=== PATIENT | female | born 2000 | race Caucasian/White ===

== ENCOUNTER 2019-12-01 14:04 | Emergency (ER) | payer BC, SELFPAY ==
--- NOTE | 2019-12-01 14:44 | HMH.EDUTC ---
[facility] [place] Disposition Clinical Impression: Uvulitis Pharyngitis Qualifiers: Pharyngitis/tonsillitis etiology: unspecified etiology Qualified Code(s): J02.9 - Acute pharyngitis, unspecified Disposition: Home, Self-Care Condition on Discharge: Good Instructions: Sore Throat, DI for Pharyngitis/Tonsillopharyngitis -- Adult Additional Instructions: Drink plenty of fluids. Take tylenol or ibuprofen for pain or fever. Take the medications as directed. Follow up with your regular doctor. GO TO THE ER FOR ANY WORSENING SYMPTOMS Don't start the oral steroids until tomorrow, since you had the shot here today. Prescriptions: methylPREDNISolone [Medrol] 4 mg PO DIRECTED 6 Days #21 tab.ds.pk Transmission Status: Received by [facility] # Azithromycin [Z-Ruddy 250mg Tab*] 250 mg PO UD DOSE PK #6 tab Transmission Status: Received by [facility] # Referrals: Sunil Ramos MD [Primary Care Provider] - Forms: Work/School Release Time of Disposition: 15:13 Medical Decision Making - Medical Records Medical records reviewed: No: I reviewed the patient's medical records. - Judah Inquiry Pt receiving controlled substance: No Vital Signs: 12/01/19 14:54 12/01/19 15:18 Temperature 99.3 F 99.3 F Temperature Source Oral Pulse Rate 93 H Pulse Rate [Right Brachial] 93 H Respiratory Rate 14 14 Blood Pressure 128/76 Blood Pressure [Right Arm] 128/76 Blood Pressure Mean [Right Arm] 93 Blood Pressure Source [Right Arm] Automatic Cuff Blood Pressure Position [Right Arm] Sitting 02 Sat by Pulse Oximetry 99 Oxygen Delivery Method Room Air Orders (Tests/Meds): ED MEDICATIONS Discontinued Medications Generic Name Dose Route Start Last Admin Trade Name Freq PRN Reason Stop Dose Admin Methylprednisolone Sodium Succinate 125 mg 12/01/19 15:01 12/01/19 15:06 Solu-Medrol 125mg/2ml Vial IM 12/01/19 15:02 125 mg ONCE ONE Administration [facility] [place] HPI - General Stated complaint: sore and swollen throat Time Seen by Provider: 12/01/19 14:44 - History of Present Illness Provider Complaint: She c/o sore throat and feeling bad for the past 2 days. She used to get strep throat frequently, but she had her tonsils removed 2 years ago and she has not had it since. But she feels like she does now. - Related Data Previous Rx's Medication Instructions Recorded Naproxen [Naproxen 500mg tab] 500 mg PO BIDP PRN #30 tab 04/21/19 Azithromycin [Z-Ruddy 250mg Tab*] 250 mg PO UD DOSE PK #6 tab 12/01/19 methylPREDNISolone [Medrol] 4 mg PO DIRECTED 6 Days #21 12/01/19 tab.ds.pk Allergies Allergy/AdvReac Type Severity Reaction Status Date / Time clindamycin [CLINDAMYCIN] Allergy Mild NA-NAUSEA/V Verified 01/17/19 09:58 OMITING cefdinir [CEFDINIR] Allergy Unknown ABDOMINAL Verified 01/17/19 09:58 CRAMPING, VOMITING [facility] History - Hepatitis A Screen Attestation statement:: This patient has been screened for Hepatitis A risk factors. I have reviewed the patient's past medical history: Yes Medical History: Denies:: Cancer, Diabetes Mellitus Type 1, Diabetes Mellitus Type 2, Hypertension, MRSA Laterality Cases: Bilateral: Tonsillectomy Amputation: No Fractures: No - Social History Smoking Status: Unknown if ever smoked Alcohol Intake: never Occupational Status: employed ROS Obtained: Yes All systems reviewed & no additional complaints - Constitutional Constitutional: Reports chills, Denies fever(s), Reports poor appetite, Reports malaise - Eyes Eyes: Denies eye discharge - ENT Ears, Nose, Mouth, and Throat: Reports as per HPI - Cardiovascular Cardiovascular: Denies chest pain - Respiratory Respiratory: No chest congestion, Yes cough - Gastrointestinal Gastrointestingal: Denies: abdominal pain, diarrhea, nausea, vomiting Physical Exam - General General appearance: alert, in no apparent distress - Hea
[2019-12-01 14:54] VITALS: BP 128/76; PULSE 93; RESP 14; TEMP 37.4; O2SAT 99; BMI 43.7
[2019-12-01 15:18] VITALS: BP 128/76; PULSE 93; RESP 14; TEMP 37.4; O2SAT 99
== END 2019-12-01 15:19 | disposition home or self-care (01) ==
PROVIDERS: Emergency Provider Nurse Practitioner Family; PCP Family Medicine
DX: K12.2 Cellulitis and abscess of mouth (principal); J02.9 Acute pharyngitis, unspecified; Z88.1 Allergy status to other antibiotic agents
CPT/HCPCS: 96372; 99201

== ENCOUNTER 2020-03-20 12:38 | Emergency (ER) | payer BC, SELFPAY ==
[2020-03-20 12:40] VITALS: BP 126/90; PULSE 76; RESP 20; TEMP 36.9; O2SAT 98; BMI 42.3
--- NOTE | 2020-03-20 12:52 | HMH.EDUTC ---
[facility] [place] Disposition Clinical Impression: Breast pain in female Disposition: Home, Self-Care Condition on Discharge: Good Instructions: Mastalgia: Benign Breast Pain Additional Instructions: Follow up with Dr Degroot for further treatment and evaluation Return if needed Over the counter pain medication may help with pain and discomfort Straight to ER if any life threatening symptoms Referrals: Sunil Ramos MD [Primary Care Provider] - As needed Gray Degroot MD [Staff Physician] - (Call office for appointment) Time of Disposition: 14:14 Medical Decision Making - Judah Inquiry Pt receiving controlled substance: No Judah was queried for this patient: No Vital Signs: 03/20/20 12:40 03/20/20 14:18 Temperature 98.4 F 98.4 F Temperature Source Oral Pulse Rate 76 Pulse Rate [Left Brachial] 76 Respiratory Rate 20 20 Blood Pressure 126/90 Blood Pressure [Left Arm] 126/90 Blood Pressure Mean [Left Arm] 102 Blood Pressure Source [Left Arm] Automatic Cuff Blood Pressure Position [Left Arm] Sitting 02 Sat by Pulse Oximetry 98 Oxygen Delivery Method Room Air - Lab Data Lab Results 03/20/20 12:56: [facility] Clinic Negative 03/20/20 13:20: Serum HCG, Qual Negative - Physician Consults Physician Consulted: Zane Time: 13:10 Reason -: Gynocological Eval/Care Comment/Response: Spoke with staff in Dr Adams office Recommended beta HCG and if negative have her call office for appointment [facility] [place] HPI - General Stated complaint: breast pain Time Seen by Provider: 03/20/20 12:52 Mode of Arrival: Ambulatory Source of Information: Patient Limitations: No Limitations Description of Symptoms (Recalled from Triage Doc. by RN): PATIENT C/O BILATERAL BREAST TENDERNESS X 1 WEEK, STATES IT WAS WORSE THIS MORNING HEENT Symptoms (Recalled from RN notes): No Resp Symptoms (Recalled from RN notes): No Skin Symptoms (Recalled from RN notes): No MS Symptoms (Recalled from RN notes): No Functional Status (Recalled from RN notes): WNL - History of Present Illness Provider Complaint: Patient reports that she has been having bilateral breast tenderness and pain on and off for about a week State that this morning it was worse so she come in to get checked States that breast feel tender to the touch, no redness no swelling no streaking Reports that there is a chance that she is and wants to get checked and tested - Related Data Home Medications Medication Instructions Recorded Confirmed No Known Home Medications 03/20/20 03/20/20 Allergies Allergy/AdvReac Type Severity Reaction Status Date / Time clindamycin [CLINDAMYCIN] Allergy Mild NA-NAUSEA/V Verified 01/17/19 09:58 OMITING cefdinir [CEFDINIR] Allergy Unknown ABDOMINAL Verified 01/17/19 09:58 CRAMPING, VOMITING - Worker's Comp Is this a Worker's Comp case?: No [facility] History - Hepatitis A Screen Drug use history?: No High risk sexual behaviors?: No History of sexually transmitted infection?: No Currently employed?: No Childcare worker?: No Do you have indoor plumbing?: Yes Do you have electricity?: Yes Attestation statement:: This patient has been screened for Hepatitis A risk factors. I have reviewed the patient's past medical history: Yes Medical History: Denies:: Cancer, Diabetes Mellitus Type 1, Diabetes Mellitus Type 2, Hypertension, MRSA Laterality Cases: Bilateral: Tonsillectomy Amputation: No Fractures: No - Social History Smoking Status: Unknown if ever smoked Alcohol Intake: never Occupational Status: other ROS Obtained: Yes All systems reviewed & no additional complaints, Yes Systems reviewed as appropriate & no additional complaints - Constitutional Constitutional: Reports system reviewed and no additional complaints, except as docu, Denies body ache, Denies chills, Denies fever(s), Denies headache(s) - Cardiovascular Cardiovascular: Reports system reviewed and no additional complaints,
[2020-03-20 12:57] LABS: UTC Pregnancy Test, Urine Negative (Negative)
[2020-03-20 14:12] LABS: HCG Qualitative, Serum Negative (Negative)
[2020-03-20 14:18] VITALS: BP 126/90; PULSE 76; RESP 20; TEMP 36.9; O2SAT 98
== END 2020-03-20 14:20 | disposition home or self-care (01) ==
PROVIDERS: Emergency Provider Nurse Practitioner; PCP Family Medicine
DX: N64.4 Mastodynia (principal); Z32.02 Encounter for pregnancy test, result negative; Z88.1 Allergy status to other antibiotic agents
CPT/HCPCS: 81025; 84703; 99202

== ENCOUNTER 2020-07-21 01:16 | Emergency (ER) | payer BC, SELFPAY ==
[2020-07-21 01:30] VITALS: BP 140/74; PULSE 88; RESP 16; TEMP 36.6; O2SAT 100; BMI 47.0
[2020-07-21 01:41] LABS: Microscopic, Urine URINE MICROSCOPIC (MICROSCOPIC)
[2020-07-21 01:44] LABS: Appearance,Urine CLEAR (Clear); Bilirubin,Urine Negative (Negative); Blood, Urine Negative (Negative); Color,Urine YELLOW (Yellow); Glucose,Urine (UA) Negative (Negative); Ketones,Urine Negative (Negative); Leukocyte Esterase,Urine Negative (Negative); Nitrate,Urine Negative (Negative); PH,Urine 6.5 (5.0-8.5); Protein,Urine Negative (Negative); Specific Gravity, Urine 1.025 (1.005-1.030); Urobilinogen,Urine 0.2 EU/dl (0.2)
[2020-07-21 01:45] LABS: Urine Pregnancy, HCG Qual. Negative (Negative)
[2020-07-21 01:54] LABS: WBC,Urine Occasional #/hpf (0-3)
[2020-07-21 01:55] LABS: Bacteria,Urine 1+ /lpf; Squamous Epithelial Cell,Urine 50-100 #/hpf (0-5)
--- NOTE | 2020-07-21 02:28 | CT_ITS ---
PROCEDURE: CT HEAD/BRAIN WO CON CLINICAL INDICATION: migraine with aura Headache for 4 days COMPARISON: No exams were available for comparison TECHNIQUE: Axial images obtained. All CT scans at the facility use one or more dose reduction, viz: automated exposure control, ma/kV adjustment per patient size (including targeted exams where dose is matched to indication, i.e. head), or iterative reconstruction technique. FINDINGS: No midline shift, mass effect, intracranial hemorrhage, hydrocephalus, or extra-axial fluid collection is evident. The calvarium has an unremarkable appearance. No mastoid effusion. No sinus air-fluid level. IMPRESSION: No acute intracranial finding Dictated by: Moisés Cruz MD 07/21/2020 06:01 Moisés Cruz MD in [place] 07/21/2020 06:01
[2020-07-21 02:49] LABS: Basophils % 0.4 % (0.1-2.0); Eosinophils # 0.1 K/mm3 (0.0-0.4); Hematocrit 40.9 % (37.0-47.0); Hemoglobin 13.4 g/dL (12.2-16.2); Lymphocytes # 2.4 K/mm3 (0.7-4.5); Lymphocytes % 24.1 % (10-50); Mean Corpuscular HGB Conc 32.8 g/dL (31.8-35.4); Mean Corpuscular Hemoglobin 28.2 pg (27.0-31.2); Mean Corpuscular Volume 85.7 fl (81-99); Mean Platelet Volume 8.2 fl (7.4-10.4); Monocytes # 0.6 K/mm3 (0.1-1.0); Monocytes % 6.1 % (1.7-9.3); Neutrophils # 6.8 K/mm3 (1.8-7.8); Neutrophils % 68.4 % (37.0-80.0); Platelet Count 278 K/mm3 (142-424); Red Blood Count 4.77 M/mm3 (4.20-5.40)
[2020-07-21 02:51] LABS: Alanine Aminotransferase 20 U/L (12-78); Albumin Level 4.4 g/dl (3.5-5.0); Alkaline Phosphatase 68 U/L (38-126); Anion Gap 11.1 mEq/L (5-15); Aspartate Amino Transferase 23 U/L (14-36); Bilirubin,Indirect 0.4 mg/dL (0.0-0.9); Bilirubin,Total 0.4 mg/dl (0.2-1.3); Bilirubin,Unconjugated 0.4 mg/dL (0.0-1.1); Blood Urea Nitrogen 11 mg/dl (7-17); Calcium 9.5 mg/dl (8.4-10.2); Carbon Dioxide 27 mmol/L (22.0-30.0); Chloride 105 mmol/L (98-107); Creatinine Clearance Estimated 144 mL/min (50-200); Estimated Glomerular Filt Rate 126 ml/min (>60); GFR (African American) 153 ML/MIN (>60); Glucose 116 mg/dl (74-100); Potassium 4.1 mmoL/L (3.5-5.1); Sodium 139 mmol/L (136-145); Total Protein,Serum 7.6 g/dl (6.3-8.2)
--- NOTE | 2020-07-21 04:01 | HMH.EDHA ---
ED Disposition Clinical Impression: Headache Qualifiers: Headache type: unspecified Headache chronicity pattern: acute headache Intractability: not intractable Qualified Code(s): R51.9 - Headache, unspecified Disposition: Home, Self-Care Condition on Discharge: Good Instructions: DI for Headache Additional Instructions: see pcp for follow up Referrals: Sunil Ramos MD [Primary Care Provider] - - Critical Care Critical Care Time: No Attestation: On 07/21/20, the high probability of a clinically significant, sudden or life threatening deterioration of the following system(s) required my full and direct attention, intervention and personal management. The time I documented below is in addition to time spent performing reported procedures but includes the following listed in this critical care notation. Medical Decision Making - Medical Records Medical records reviewed: Yes: I reviewed the patient's medical records. - Judah Inquiry Pt receiving controlled substance: No Vital Signs: 07/21/20 01:30 Temperature 97.8 F Temperature Source Oral Pulse Rate [Right Brachial] 88 Respiratory Rate 16 Blood Pressure [Right Arm] 140/74 Blood Pressure Mean [Right Arm] 96 Blood Pressure Source [Right Arm] Automatic Cuff Blood Pressure Position [Right Arm] Sitting 02 Sat by Pulse Oximetry 100 Oxygen Delivery Method Room Air - Lab Data Lab results reviewed: Yes: I reviewed the patient's lab results. Lab Results 07/21/20 01:25: Urine Color Yellow, Urine Appearance Clear, Urine pH 6.5, Ur Specific [place] 1.025, Urine Protein Negative, Urine Glucose (UA) Negative, Urine Ketones Negative, Urine Blood Negative, Urine Nitrate Negative, Urine Bilirubin Negative, Urine Urobilinogen 0.2, Ur Leukocyte Esterase Negative, Urine RBC None, Urine WBC Occasional, Ur Squamous Epith Cells 50-100, Urine Bacteria 1+ 07/21/20 01:25: Urine HCG, Qual Negative 07/21/20 01:35: WBC 10.0, RBC 4.77, Hgb 13.4, Hct 40.9, MCV 85.7, MCH 28.2, MCHC 32.8, RDW 14.0, Plt Count 278, MPV 8.2, Neut % (Auto) 68.4, Lymph % (Auto) 24.1, [place] % (Auto) 6.1, Eos % (Auto) 1.0, Baso % (Auto) 0.4, Neut # (Auto) 6.8, Lymph # (Auto) 2.4, [place] # (Auto) 0.6, Eos # (Auto) 0.1, Baso # (Auto) 0.0 07/21/20 01:35: Sodium 139, Potassium 4.1, Chloride 105, Carbon Dioxide 27, Anion Gap 11.1, BUN 11, Creatinine 0.60, Estimated Creat Clear 144, Estimated GFR 126, Est GFR ( Amer) 153, Glucose 116 H, Calcium 9.5, Total Bilirubin 0.4, Direct Bilirubin 0.0, Conjugated Bilirubin 0.0, Indirect Bilirubin 0.4, Unconjugated Bilirubin 0.4, AST 23, ALT 20, Alkaline Phosphatase 68, Total Protein 7.6, Albumin 4.4 Result diagrams: 07/21/20 01:35 07/21/20 01:35 Orders (Tests/Meds): ED MEDICATIONS Generic Name Dose Route Start Last Admin Trade Name Freq PRN Reason Stop Dose Admin Sodium Chloride 1,000 mls @ 999 mls/hr 07/21/20 01:45 07/21/20 01:52 Sod Chlor 0.9% 1000ml Bag IV 07/21/20 02:45 999 mls/hr .Q1H1M RALPH Administration Discontinued Medications Generic Name Dose Route Start Last Admin Trade Name Freq PRN Reason Stop Dose Admin Ketorolac Tromethamine 30 mg 07/21/20 01:41 07/21/20 01:52 Ketorolac 30mg/Ml Vial IV 07/21/20 01:42 30 mg ONCE ONE Administration Methylprednisolone Sodium Succinate 125 mg 07/21/20 01:39 07/21/20 01:52 Methylprednisolone Sod Succ 125mg Vial IV 07/21/20 01:40 125 mg ONCE ONE Administration Ondansetron HCl 4 mg 07/21/20 01:41 07/21/20 01:52 Ondansetron 4mg/2ml Vial IV 07/21/20 01:42 4 mg ONCE ONE Administration ORDERS Category Date Time Status CT head/brain wo con Stat Cat Scan 07/21/20 02:28 Taken - CT Data CT Scan: Head Time Received: 04:[address] Reviewed: Yes: I have viewed the radiologist's interpretation Preliminary Findings: Normal/NAD Medical Decision Narrative: neg ct and improved with treatment Headache HPI - General Chief Complaint: Headache Stated Compl
[2020-07-21 04:10] VITALS: BP 117/50; PULSE 73; RESP 16; TEMP 36.4; O2SAT 100
== END 2020-07-21 04:14 | disposition home or self-care (01) ==
PROVIDERS: Emergency Provider Emergency Medicine; PCP Family Medicine
DX: G43.109 Migraine with aura, not intractable, without status migrainosus (principal)
CPT/HCPCS: 70450; 80048; 80076; 81001; 81025; 85025; 96365; 96375; 99283; J2405

== ENCOUNTER → 2020-12-05 15:11 | Outpatient (CLI) | payer BC, SELFPAY ==
--- NOTE | 2020-12-05 15:18 | MR_ITS ---
PROCEDURE: MR HEAD/BRAIN WO/W CON CLINICAL INDICATION: MIGRAINES WITH RT SIDED WEAKNESS COMPARISON: CT CT HEAD/BRAIN WO CON from 07/21/2020 TECHNIQUE: Multiplanar, multisequence MRI brain performed with both pre- and post-contrast imaging. Contrast: FINDINGS: No restricted diffusion is present to suggest an acute infarct.There is no space-occupying or enhancing mass lesion and no abnormal fluid collection.There is no abnormal post-contrast enhancement.There is no evidence of hemorrhage. Ventricles: The Ventricles are within noraml limits for size, configuration, and symmetry. Volume: Brain parenchymal volume is appropriate for age. Osseous: Osseous structures are unremarkable. Sinuses: The paranasal sinuses are clear bilaterally. Mastoids: Mastoid air cells are clear. IMPRESSION: Unremarkable MRI brain without evidence of any acute intracranial process. Dictated by: Moisés Cruz MD 12/06/2020 12:10 Moisés Cruz MD in [place] 12/06/2020 12:10
--- NOTE | 2020-12-05 15:18 | MR_ITS ---
PROCEDURE: MR ANGIO HEAD WO CON CLINICAL INDICATION: MIGRAINES WITH HX OF RT SIDED WEAKNESS COMPARISON: MR MR HEAD/BRAIN WO/W CON from 12/05/2020 TECHNIQUE: MR angiography of the intracranial circulation acquired without contrast, using 3D time of flight imaging with multiplanar 3D reformations. FINDINGS: ANTERIOR CIRCULATION: Carotids: The right ICA has an unremarkable appearance. There is a linear filling defect within the supraclinoid portion of the left ICA versus partial duplication or a vascular variant adjacent to the lateral aspect of the left ICA in the supraclinoid region extending to the ICA bifurcation. Anterior circulation: Both supraclinoid ICAs bifurcate into normal anterior and middle cerebral arteries without any significant stenosis or aneurysm. 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 Anterior additional: POSTERIOR CIRCULATION: Posterior circulation: There is persistent origin of the right posterior cerebral artery as a normal variant. The vertebral, basilar, and posterior cerebral have otherwise unremarkable appearance. Posterior additional: No other significant findings are noted. 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 A dissection of the supraclinoid portion of the left ICA is felt to be less likely but is included in the differential diagnosis. Suggest CT angiogram of the head for further evaluation. No aneurysm Dictated by: Moisés Cruz MD 12/06/2020 12:27 Moisés Cruz MD in [place] 12/06/2020 12:27
== END ==
PROVIDERS: PCP Family Medicine; Visit Provider Family Medicine
DX: G43.409 Hemiplegic migraine, not intractable, without status migrainosus (principal)
CPT/HCPCS: 70544; 70553; A9576

== ENCOUNTER → 2021-01-01 10:47 | Outpatient (CLI) | payer BC, SELFPAY ==
--- NOTE | 2021-01-01 10:47 | CT_ITS ---
PROCEDURE INFORMATION: Exam: CT Angiography Head With Contrast, Arteriography Exam date and time: 01/01/2021 10:47 AM Age: 20 years old Clinical indication: Worsening headaches, numbness, visual changes, TECHNIQUE: Imaging protocol: Computed tomography angiography of the head with contrast. Exam focused on the arteries. 3D rendering (Not supervised by radiologist): MIP and/or 3D reconstructed images were created by the technologist. Radiation optimization: All CT scans at this facility use at least one of these dose optimization techniques: automated exposure control; mA and/or kV adjustment per patient size (includes targeted exams where dose is matched to clinical indication); or iterative reconstruction. Contrast material: ISOVUE 370; Contrast volume: 70 ml; Contrast route: INTRAVENOUS (IV); COMPARISON: MR ANGIO HEAD WO CON 12/05/2020 3:38 PM FINDINGS: ANTERIOR CIRCULATION: Right internal carotid artery: Unremarkable. Intracranial segment is patent with no significant stenosis. No aneurysm. Right middle cerebral artery: Unremarkable. No occlusion or significant stenosis. No aneurysm. Right anterior cerebral artery: Unremarkable. No occlusion or significant stenosis. No aneurysm. Left internal carotid artery: Unremarkable. Intracranial segment is patent with no significant stenosis. No aneurysm. Left middle cerebral artery: Unremarkable. No occlusion or significant stenosis. No aneurysm. Left anterior cerebral artery: Unremarkable. No occlusion or significant stenosis. No aneurysm. POSTERIOR CIRCULATION: Right vertebral artery: Unremarkable. No occlusion or significant stenosis. No aneurysm. Left vertebral artery: Unremarkable. No occlusion or significant stenosis. No aneurysm. Basilar artery: Unremarkable. No occlusion or significant stenosis. No aneurysm. Right posterior cerebral artery: Unremarkable. No occlusion or significant stenosis. No aneurysm. Left posterior cerebral artery: Unremarkable. No occlusion or significant stenosis. No aneurysm. Brain: No definite mass, mass effect, or midline shift. Cerebral ventricles: No ventriculomegaly. Bones/joints: Unremarkable. No acute fracture. Soft tissues: Unremarkable. IMPRESSION: No large vessel stenosis or occlusion.
== END ==
LOC: RAD 10:47
PROVIDERS: PCP Physician Assistant; Visit Provider Physician Assistant
DX: R51.9 Headache, unspecified (principal); R93.0 Abnormal findings on diagnostic imaging of skull and head, not elsewhere classified
CPT/HCPCS: 70496; Q9967

== ENCOUNTER → 2021-01-21 09:13 | Outpatient (CLI) | payer BC, SELFPAY ==
[2021-01-21 09:49] VITALS: BMI 34.7
[2021-01-21 10:04] LABS: Coronavirus 19, PCR Not Detected (NotDetected); Influenza A, PCR Not Detected (NotDetected); Influenza B, PCR Not Detected (NotDetected)
== END ==
PROVIDERS: PCP Physician Assistant; Visit Provider Nurse Practitioner
DX: Z20.822 Contact with and (suspected) exposure to COVID-19 (principal)
CPT/HCPCS: C9803; U0003; U0005

== ENCOUNTER → 2021-04-08 11:01 | Outpatient (CLI) | payer OTHER, SELFPAY ==
[2021-04-08 11:15] LABS: Influenza A, PCR Not Detected (NotDetected); Influenza B, PCR Not Detected (NotDetected)
[2021-04-08 11:56] LABS: Coronavirus 19, PCR Detected (NotDetected)
== END ==
PROVIDERS: PCP Physician Assistant; Visit Provider Nurse Practitioner
DX: U07.1 COVID-19 (principal)
CPT/HCPCS: C9803; U0003; U0005

== ENCOUNTER 2021-08-08 11:38 | Emergency (ER) | payer BC, SELFPAY ==
[2021-08-08 11:55] VITALS: BP 109/76; PULSE 68; RESP 18; TEMP 36.8; O2SAT 99; BMI 44.3
--- NOTE | 2021-08-08 12:00 | HMH.EDUTC ---
[facility] [place], [place] Disposition Clinical Impression: Strep sore throat Disposition: Home, Self-Care Condition on Discharge: Good Instructions: DI for Strep Throat Additional Instructions: Start antibiotics today be sure to take it as ordered with the full length of time although you should start feeling better in 24-48 hours. Change toothbrush and toothpaste 24-48 hours after starting antibiotics Tylenol or Motrin as needed for fever or pain Encourage fluids, water, Gatorade, Powerade, try cold fluids, popsicles, ice cream will make it feel better You are contagious for 24 hours. Avoid kissing anyone, no eating or drinking after anyone. You are contagious. Follow-up the ER for new or worsening symptoms or no noticeable improvement over the next 24-48 hours. Follow-up with PCP this week. Prescriptions: Azithromycin [Zithromax 250mg tab] 250 mg PO DIRECTED #6 tab Transmission Status: Pending to [facility] #[id number] Referrals: Molly Salter PA [Primary Care Provider] - Time of Disposition: 12:15 Medical Decision Making - Judah Inquiry Pt receiving controlled substance: No Vital Signs: 08/08/21 11:55 Temperature 98.3 F Temperature Source Oral Pulse Rate [Radial] 68 Respiratory Rate 18 Blood Pressure [Right Arm] 109/76 L Blood Pressure Mean [Right Arm] 87 02 Sat by Pulse Oximetry 99 - Lab Data Lab Results 08/08/21 11:51: Group A Strep Rapid Negative Orders (Tests/Meds): ORDERS Category Date Time Status Strep Screen Confirmation Stat Micro 08/08/21 11:51 Received [facility] [place], [place] HPI - General Chief complaint: Urgent Treatment Center Stated complaint: cough, sore throat Time Seen by Provider: 08/08/21 12:12 Mode of Arrival: Ambulatory Source of Information: Patient Limitations: No Limitations Description of Symptoms (Recalled from Triage Doc. by RN): pt here with c/o cough, sore throat. pt tested negative for covid this am HEENT Symptoms (Recalled from RN notes): Yes Resp Symptoms (Recalled from RN notes): Yes Skin Symptoms (Recalled from RN notes): No MS Symptoms (Recalled from RN notes): No Functional Status (Recalled from RN notes): wnl - History of Present Illness Provider Complaint: 21 yr old female presnets for c/o cough, sore throat. pt tested negative for covid this am - Related Data Home Medications Medication Instructions Recorded Confirmed rimegepant 75 mg disintegrating mg PO ONCE PRN tab 12/27/20 01/17/21 tablet topiramate 50 mg tablet 50 mg PO BID 12/27/20 01/17/21 Previous Rx's Medication Instructions Recorded butalbital 50 mg-acetaminophen 300 1 cap PO Q4H PRN #30 cap 12/27/20 mg-caffeine 40 mg-codeine 30 mg cap lisdexamfetamine 30 mg capsule 30 mg PO DAILY #30 cap 01/17/21 doxycycline hyclate 100 mg tablet 100 mg PO BID #20 tab 01/21/21 prednisone 20 mg tablet 20 mg PO BID #10 tab 01/21/21 azithromycin 250 mg tablet See Rx Instructions PO .COMPLEX #6 04/11/21 tab [id number]-[id number]-[id number] 5 ml PO Q8H PRN #200 ml 04/11/21 2 mg-30 mg-10 mg/5 mL oral syrup methylprednisolone 4 mg tablets in See Rx Instructions PO PER PKG DIR 04/11/21 a dose pack #21 tab cariprazine 1.5 mg capsule 1.5 mg PO DAILY #30 cap 04/23/21 Azithromycin [Zithromax 250mg 250 mg PO DIRECTED #6 tab 08/08/21 tab] Allergies Allergy/AdvReac Type Severity Reaction Status Date / Time clindamycin [CLINDAMYCIN] Allergy Mild NA-NAUSEA/V Verified 08/08/21 12:03 OMITING cefdinir [CEFDINIR] Allergy Unknown ABDOMINAL Verified 08/08/21 12:03 CRAMPING, VOMITING - Worker's Comp Is this a Worker's Comp case?: No [facility] History - Hepatitis A Screen Attestation statement:: This patient has been screened for Hepatitis A risk factors. I have reviewed the patient's past medical history: Yes Medical History: Reports:: Migraine Denies:: Cancer, Diabetes Mellitus Type 1, Diabetes Mellitus Type 2, Hypertension, MRSA Laterality Cases: Bilateral:
[2021-08-08 12:06] LABS: Strep Scrn Group A (Rapid) Negative (Negative)
[2021-08-08 12:07] LABS: UTC Influenza A Antigen Negative (Negative); UTC Influenza B Antigen Negative (Negative)
[2021-08-08 12:20] VITALS: BP 109/76; PULSE 68; RESP 18; TEMP 36.8
== END 2021-08-08 12:22 | disposition home or self-care (01) ==
PROVIDERS: Emergency Provider Nurse Practitioner Family; PCP Physician Assistant
DX: J02.0 Streptococcal pharyngitis (principal); Z88.1 Allergy status to other antibiotic agents
CPT/HCPCS: 87430; 87804; 99212; G0463

== ENCOUNTER 2022-02-12 09:35 | Emergency (ER) | payer BC, SELFPAY ==
[2022-02-12 10:45] VITALS: BP 147/87; PULSE 69; RESP 19; TEMP 36.7; O2SAT 98; BMI 47.4
[2022-02-12 10:59] LABS: UTC Influenza A Antigen Negative (Negative); UTC Influenza B Antigen Negative (Negative)
--- NOTE | 2022-02-12 11:03 | EXP.UTC ---
Discharge Plan Disposition Patient Disposition: Home, Self-Care Condition: Good Prescriptions Prescriptions: New azithromycin [Zithromax Z-Ruddy] 250 mg tablet See Rx Instructions .ROUTE .COMPLEX 5 Days Qty: 6 0RF Rx Instructions: For 250 mg dose pack: take 500 mg today (day 1), then 250 mg for 4 days (days 2-5) methylprednisolone [Medrol (Ruddy)] 4 mg tablets,dose pack See Rx Instructions .Route .COMPLEX 6 Days Qty: 21 0RF Rx Instructions: taper pack; No Action venlafaxine 75 mg tablet 75 mg PO DAILY Referrals Follow up/Referrals: Chelita Hobson APRN [Primary Care Provider] - See instructions Activity Restrictions/Add. Instructions Additional Instructions/Restrictions: *Monitor Temp, Over the counter Motrin or Tylenol as directed/as needed Tylenol every 4 hours and Motrin every 6 hours (as long as your family doctor has told you that you can take it) for fever or pain. and straight to ER if unable to lower temp less than 101.0 after medication given *Warm salt water gargles may help to soothe the throat *Throat Lozenges? *Warm fluids like tea with honey may help to soothe the throat? *Sleep elevated *Humidifier/Vaporizer hild) before driving, caring for small child, or sending your child to school. Not other antihistamines/allergy medications while taking bromfed Your throat swab was sent for culture. Those results are typically sent to your primary care. Be sure to follow up in 2-3 days with your family doctor/primary care physician if no improvement so they can review those result and treat if necessary. If you don?t have a primary care doctor, I recommend you get one but in the mean time, you will have to return to a walk in clinic Follow up IMMEDIATELY for new or worsening symptoms or no Noticeable improvement over the next 48-72 hours. 911 for difficulty breathing or swallowing Clinical Impressions Clinical Impression: URI (upper respiratory infection) Qualifiers: URI type: unspecified URI Qualified Code(s): J06.9 - Acute upper respiratory infection, unspecified Instructions Patient Instructions: Sore Throat, DI for Fever (Symptom) -- Adult Discharge ED Provider: Casandra EspañaH UTC HPI General Stated complaint: Cold sweats, sore throat, HERRING Mode of Arrival: Ambulatory Source of Information: Patient Limitations: No Limitations Time Seen by Provider: 02/12/22 11:04 Description of Symptoms (Recalled from Triage Doc. by RN): PATIENT C/O SORE THROAT, COLD SWEATS, COUGH AND HEADACHE X 3 DAYS HEENT Symptoms (Recalled from RN notes): Yes Resp Symptoms (Recalled from RN notes): Yes Skin Symptoms (Recalled from RN notes): No MS Symptoms (Recalled from RN notes): No Functional Status (Recalled from RN notes): WNL History of Present Illness Provider Complaint: Patient states that she has been having sore throat, cough, chills and felt like she had a fever she would feel warm then start sweating and it would break up like her fever broke States that today she was still feeling bad so she came in Related Data Home Medications Medication Instructions Recorded Confirmed venlafaxine 75 mg tablet 75 mg PO DAILY Depression 01/16/22 02/12/22 Previous Rx's Medication Instructions Recorded azithromycin 250 mg tablet See Rx Instructions PO .COMPLEX 5 02/12/22 (Zithromax Z-Ruddy) days #6 tabs methylprednisolone 4 mg tablets in See Rx Instructions .Route 02/12/22 a dose pack (Medrol (Ruddy)) .COMPLEX 6 days #21 tabs Allergies Allergy/AdvReac Type Severity Reaction Status Date / Time clindamycin [CLINDAMYCIN] Allergy Mild NA-NAUSEA/V Verified 01/16/22 10:09 OMITING cefdinir [CEFDINIR] Allergy Unknown ABDOMINAL Verified 01/16/22 10:09 CRAMPING, VOMITING Worker's Comp Is this a Worker's Comp case?: No [facility] Medical History (Updated 02/12/22 @ 11:07 by Casandra España, RYAN) Anxiety Attention deficit hyperactivity disorder (ADHD) De
[2022-02-12 11:24] VITALS: BP 147/87; PULSE 69; RESP 19; TEMP 36.7; O2SAT 98
[2022-02-12 11:25] LABS: UTC Strep Screen (Rapid) Negative (Negative)
== END 2022-02-12 11:27 | disposition home or self-care (01) ==
PROVIDERS: Emergency Provider Nurse Practitioner; PCP Nurse Practitioner Family
DX: J02.9 Acute pharyngitis, unspecified (principal); R50.9 Fever, unspecified; R61 Generalized hyperhidrosis; G43.909 Migraine, unspecified, not intractable, without status migrainosus; E66.01 Morbid (severe) obesity due to excess calories; F90.9 Attention-deficit hyperactivity disorder, unspecified type; F32.A Depression, unspecified; Z88.0 Allergy status to penicillin; F41.9 Anxiety disorder, unspecified; Z88.8 Allergy status to other drugs, medicaments and biological substances; Z68.42 Body mass index [BMI] 45.0-49.9, adult; Z82.49 Family history of ischemic heart disease and other diseases of the circulatory system; Z83.3 Family history of diabetes mellitus; Z82.5 Family history of asthma and other chronic lower respiratory diseases; Z80.9 Family history of malignant neoplasm, unspecified; Z83.2 Family history of diseases of the blood and blood-forming organs and certain disorders involving the immune mechanism; Z83.49 Family history of other endocrine, nutritional and metabolic diseases
CPT/HCPCS: 87804; 87880; 99213; G0463

== ENCOUNTER 2022-11-21 11:47 | Emergency (ER) | payer BC, SELFPAY ==
[2022-11-21 11:48] VITALS: BP 128/96; PULSE 99; RESP 20; TEMP 36.7; O2SAT 99; BMI 45.4
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
[2022-11-21 12:19] LABS: Microscopic, Urine URINE MICROSCOPIC (MICROSCOPIC)
[2022-11-21 12:44] VITALS: BP 128/96; PULSE 99; RESP 20; TEMP 36.7; O2SAT 99
[2022-11-21 13:02] LABS: Appearance,Urine CLEAR (Clear); Bilirubin,Urine Negative (Negative); Blood, Urine Negative (Negative); Color,Urine YELLOW (Yellow); Glucose,Urine (UA) Negative (Negative); Ketones,Urine Negative (Negative); Leukocyte Esterase,Urine Negative (Negative); Nitrate,Urine Negative (Negative); Protein,Urine Negative (Negative); Urobilinogen,Urine 0.2 EU/dl (0.2)
[2022-11-21 13:34] LABS: Bacteria,Urine 1+ /lpf; WBC,Urine Occasional #/hpf (0-3)
== END 2022-11-21 12:45 | disposition home or self-care (01) ==
PROVIDERS: Emergency Provider Nurse Practitioner Family; PCP Nurse Practitioner Family
DX: N39.0 Urinary tract infection, site not specified (principal); M54.59 Other low back pain; R51.9 Headache, unspecified; F41.9 Anxiety disorder, unspecified; F32.A Depression, unspecified; F90.9 Attention-deficit hyperactivity disorder, unspecified type
CPT/HCPCS: 81001; 99212; 99214; G0463

== ENCOUNTER 2023-04-30 12:37 | Emergency (ER) | payer BC, SELFPAY ==
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
[2023-04-30 13:45] VITALS: BP 141/99; PULSE 89; RESP 18; TEMP 36.9; O2SAT 99; BMI 52.2
[2023-04-30 14:05] LABS: Apearance,Urine Clear (Clear); Bilirubin,Urine Negative (Negative); Blood, Urine Negative (Negative); Color,Urine Yellow (Yellow); Glucose,Urine (UA) Negative (Negative); Ketones,Urine Negative (Negative); PH,Urine 5.5 (5.0-8.5); Protein,Urine Negative (Negative); UTC Leukocyte Esterase,Urine Negative (Negative); UTC Nitrate,Urine Negative (Negative); Urobilinogen,Urine 0.2 EU/dl (0.2)
[2023-04-30] MEDS: KETOROLAC 60MG/2ML VIAL 60 MG IM (14:34)
[2023-04-30 14:48] VITALS: BP 141/99; PULSE 89; RESP 18; TEMP 36.9; O2SAT 99
== END 2023-04-30 14:48 | disposition home or self-care (01) ==
PROVIDERS: Emergency Provider Nurse Practitioner Family
DX: N94.6 Dysmenorrhea, unspecified (principal); M54.50 Low back pain, unspecified; R10.819 Abdominal tenderness, unspecified site; E66.01 Morbid (severe) obesity due to excess calories; Z68.43 Body mass index [BMI] 50.0-59.9, adult
CPT/HCPCS: 81003; 96372; 99212; 99214; G0463

== ENCOUNTER 2023-05-06 07:54 | Outpatient (CLI) | payer BC, SELFPAY ==
--- NOTE | 2023-05-06 07:55 | US_ITS ---
PROCEDURE: US TRANSVAGINAL CLINICAL INDICATION: irregular bleeding COMPARISON: No exams were available for comparison FINDINGS: Transvaginal sonographic images of the pelvis were obtained. UTERUS: 9.2cm x 5.3cmx 4.0cm anteverted with a combined endometrial thickness of 9.2 mm. There is a small amount of fluid in the cervix. LEFT OVARY: 3.8 cmx3.6 cmx1.5cm with a volume of 10.6ml. Within the left ovary is a follicle measuring 2.5 cm x 2.9 cm x 1.4 cm. RIGHT OVARY: 2.8 cmx 1.7 cmx1.8 cm with a volume of 4.4ml. Appears polycystic with multiple, small peripheral follicles. Both ovaries are seen . Doppler flow to both ovaries are seen. There is no fluid in the cul-de-sac. IMPRESSION: 1. Anteverted, bulky uterus with a normal appearing endometrium. 2. There is a small amount of fluid within the cervix. 3. Right ovary appears polycystic and within the left ovary is a follicle measuring 2.9 cm. 4. No fluid in the cul-de-sac. Dictated by: Gray Degroot MD 05/06/2023 13:50 Gray Degroot MD in OV 05/06/2023 13:50
== END 2023-05-06 23:59 ==
LOC: RAD 07:55
PROVIDERS: PCP Nurse Practitioner Family; Visit Provider Obstetrics & Gynecology
DX: N92.6 Irregular menstruation, unspecified (principal)
CPT/HCPCS: 76830

== ENCOUNTER 2024-01-07 11:20 | Outpatient (CLI) | payer BC, SELFPAY ==
[2024-01-07 18:15] LABS: Coronavirus 19, PCR Not Detected (NotDetected); Influenza A, PCR Not Detected (NotDetected); Influenza B, PCR Not Detected (NotDetected)
== END 2024-01-07 23:59 | disposition home or self-care (01) ==
LOC: LAB.DROPOF 01-08 08:32
PROVIDERS: PCP Student in an Organized Health Care Education/Training Program; Visit Provider Student in an Organized Health Care Education/Training Program
DX: R50.9 Fever, unspecified (principal); J02.9 Acute pharyngitis, unspecified
CPT/HCPCS: 87070; 87636